=== PATIENT | female | born 1990 | race Caucasian/White ===

== ENCOUNTER 2018-01-05 12:18 | Emergency (ER) | payer MEDICAID ==
[~2018-01-05] VITALS: Ht 165.1 cm; Wt 112.0 kg
[~2018-01-05 12:18] MED LIST: AZEL30SP BOTHNARES; AZIT250T PO; PHEN37.54 PO
[2018-01-05 12:49] VITALS: BP 128/89
[2018-01-05] MEDS ORDERED: AMOX-422 PO (14:31)
== END 2018-01-05 14:43 | disposition home or self-care (01) ==
LOC: ER 12:19
DX: J01.10 Acute frontal sinusitis, unspecified (principal); I10 Essential (primary) hypertension; G89.29 Other chronic pain; F17.200 Nicotine dependence, unspecified, uncomplicated; Z98.890 Other specified postprocedural states; Z79.899 Other long term (current) drug therapy
CPT/HCPCS: 99283

== ENCOUNTER 2018-06-14 20:07 | Emergency (ER) | payer MEDICAID ==
[~2018-06-14] VITALS: Ht 165.1 cm; Wt 131.0 kg
[2018-06-14] MEDS ORDERED: ketorolac tromethamine 15mg/ml inj. IM ONE (22:10)
[2018-06-14] MEDS ORDERED: IBUP-1985 PO (22:11)
[2018-06-14 22:41] VITALS: BP 135/97
== END 2018-06-14 22:42 | disposition home or self-care (01) ==
LOC: ER 20:08
DX: M25.511 Pain in right shoulder (principal); I10 Essential (primary) hypertension; G89.29 Other chronic pain
CPT/HCPCS: 96372; 99283; A4565; J1885

== ENCOUNTER 2019-02-04 16:42 | Emergency (ER) | payer MEDICAID ==
[~2019-02-04] VITALS: Ht 165.1 cm; Wt 130.0 kg
[~2019-02-04 16:42] MED LIST changes: +IBUP-1985 PO
[2019-02-04 16:55] VITALS: BP 131/88
[2019-02-04] MEDS ORDERED: AMOX-580 PO (17:40)
== END 2019-02-04 18:04 | disposition home or self-care (01) ==
LOC: ER 16:42
DX: J32.0 Chronic maxillary sinusitis (principal); J32.2 Chronic ethmoidal sinusitis; I10 Essential (primary) hypertension; G89.29 Other chronic pain; Z79.899 Other long term (current) drug therapy
CPT/HCPCS: 99283

== ENCOUNTER 2019-06-13 11:31 | Emergency (ER) | payer MEDICAID ==
[~2019-06-13] VITALS: Ht 165.1 cm; Wt 126.0 kg
--- NOTE | 2019-06-13 11:49 | NUR ---
SEVERAL ATTEMPTS MADE CALLING [facility] TO INQUIRE ON "PT BEING SENT HERE" PER A PHONE CALL THEY RECEIVED FROM THE CLINIC. RECEIVED NUMBER TO CALL [employer], [employer]AGE PROFESSOR CURRENTLY CALLING.
--- NOTE | 2019-06-13 13:29 | NUR ---
Offered patient crutches patient refused. ER MD aware no new orders.
[2019-06-13 13:31] VITALS: BP 124/91
== END 2019-06-13 13:33 | disposition home or self-care (01) ==
LOC: ER 11:31
DX: S91.332A Puncture wound without foreign body, left foot, initial encounter (principal); S90.32XA Contusion of left foot, initial encounter; I10 Essential (primary) hypertension; G89.29 Other chronic pain; E66.01 Morbid (severe) obesity due to excess calories; F17.200 Nicotine dependence, unspecified, uncomplicated; Z90.49 Acquired absence of other specified parts of digestive tract; Z79.2 Long term (current) use of antibiotics; Z79.1 Long term (current) use of non-steroidal anti-inflammatories (NSAID); Z79.899 Other long term (current) drug therapy; W22.8XXA Striking against or struck by other objects, initial encounter; Y93.89 Activity, other specified; Y92.89 Other specified places as the place of occurrence of the external cause; Y99.8 Other external cause status
CPT/HCPCS: 73630; 99283

== ENCOUNTER 2022-12-23 09:10 | Emergency (ER) | payer MEDICAID ==
[~2022-12-23] VITALS: Ht 152.4 cm; Wt 130.0 kg
[~2022-12-23 09:10] MED LIST changes: -PHEN37.54 PO; +PHEN37.58 PO
--- NOTE | 2022-12-23 09:59 | NUR ---
Initial BP 164/100 approx 45 min ago. Currently 145/95.
[2022-12-23 10:05] LABS: BASOPHILS % (AUTO) 0.3 % (0-1); EOSINOPHILS # (AUTO) 0.1 X10'3 (0-0.9); EOSINOPHILS % (AUTO) 1.1 % (0-6); HEMATOCRIT 34.4 % (35.0-45.0); HEMOGLOBIN 11.2 g/dl (12.0-16.0); LYMPHOCYTES # (AUTO) 1.7 X10'3 (1.1-4.8); LYMPHOCYTES % (AUTO) 19.9 % (21-51); MEAN CORPUSCULAR HEMOGLOBIN 27.5 PG (27.0-31.0); MEAN CORPUSCULAR HGB CONC 32.6 g/dL (33.0-36.5); MEAN CORPUSCULAR VOLUME 84.6 FL (78-98); MEAN PLATELET VOLUME 8.7 FL (7.4-10.4); MONOCYTES # (AUTO) 0.7 X10'3 (0-0.9); MONOCYTES % (AUTO) 8.4 % (2-12); NEUTROPHILS # (AUTO) 5.9 X10'3 (1.8-7.7); NEUTROPHILS % (AUTO) 70.3 % (42-75); PLATELET COUNT 226 X10'3 (140-440); RED BLOOD COUNT 4.07 X10'6 (4.20-5.60); RED CELL DISTRIBUTION WIDTH 15.2 % (11.5-14.5); WHITE BLOOD COUNT 8.4 X10'3 (4.5-11.0)
[2022-12-23 10:17] LABS: ALANINE AMINOTRANSFERASE 12 U/L (12-78); ALBUMIN 2.7 G/DL (3.4-5.0); ALBUMIN/GLOBULIN RATIO 0.7 (1.1-1.5); ALKALINE PHOSPHATASE 68 IU/L (46-116); ANION GAP 11 (8-16); ASPARTATE AMINO TRANSFERASE 11 U/L (10-37); BILIRUBIN,TOTAL 0.3 MG/DL (0.1-1.0); BLOOD UREA NITROGEN 5 MG/DL (7-18); BUN/CREATININE RATIO 9.1 (6.6-38.0); CALCIUM 9.3 MG/DL (8.5-10.1); CHLORIDE 105 MMOL/L (99-107); CREATININE 0.55 MG/DL (0.40-0.90); GLUCOSE 110 MG/DL (70-104); POTASSIUM 3.9 MMOL/L (3.5-5.1); SODIUM 138 MMOL/L (135-145); TOTAL CARBON DIOXIDE 22.4 MMOL/L (24-32); TOTAL PROTEIN 6.7 G/DL (6.4-8.2); eGFR > 90 ML/MIN
[2022-12-23 10:48] LABS: CLARITY,URINE SLIGHTLY CLOUDY (Clear); COLOR,URINE YELLOW (Yellow); GLUCOSE, URINE NEGATIVE (Neg); KETONES,URINE NEGATIVE (Neg); LEUKOCYTE ESTERASE ,URINE TRACE (Neg); NITRITES, URINE NEGATIVE (Neg); OCCULT BLOOD,URINE NEGATIVE (Neg); PROTEIN,URINE NEGATIVE (Neg); UROBILINOGEN,URINE 0.2 E.U/dL (0.2-1.0)
[2022-12-23 10:58] LABS: RBC,URINE NONE SEEN /HPF (0-2); SQUAMOUS EPITHELIAL CELL,UR MODERATE /LPF (FEW); UA COLLECTION TYPE CLN CATCH MIDSTREAM; WBC,URINE 0-4 /HPF (0-4)
[2022-12-23 10:59] LABS: BACTERIA,URINE 2+ /HPF (Neg); MUCUS STRANDS FEW /LPF (Neg)
[2022-12-23] MEDS ORDERED: CEPH500C82 PO (11:14)
[2022-12-23] MEDS: cephalexin 500mg capsule PO ONE (11:20)
[2022-12-23 11:33] VITALS: BP 133/89
== END 2022-12-23 11:35 | disposition home or self-care (01) ==
LOC: ER 09:10
DX: O99.519 Diseases of the respiratory system complicating pregnancy, unspecified trimester (principal); J02.9 Acute pharyngitis, unspecified; I10 Essential (primary) hypertension; Z98.890 Other specified postprocedural states
CPT/HCPCS: 36415; 80053; 81001; 85025; 87081; 87088; 87880; 99283

== ENCOUNTER 2023-02-24 20:18 | Emergency (ER) | payer MEDICAID ==
[~2023-02-24] VITALS: Ht 165.1 cm; Wt 124.1 kg
[2023-02-24] MEDS ORDERED: ketorolac tromethamine 15mg/ml inj. IM ONE (21:45)
[2023-02-24] MEDS ORDERED: gentamicin 0.3% ophthalmic drops 5ML LEFTEYE ONE (21:45)
[2023-02-24 22:37] VITALS: BP 163/105
== END 2023-02-24 22:39 | disposition home or self-care (01) ==
LOC: ER 20:19
DX: H10.9 Unspecified conjunctivitis (principal); M54.31 Sciatica, right side; I10 Essential (primary) hypertension; G89.29 Other chronic pain; Z98.890 Other specified postprocedural states; Z79.899 Other long term (current) drug therapy
CPT/HCPCS: 96372; 99283; J1885